=== PATIENT | male | born 1950 | race Caucasian/White ===

== ENCOUNTER 2020-06-12 21:19 | Emergency (ER) | payer MEDICARE, MEDICAID ==
[2020-06-12] MEDS ORDERED: Labetalol HCl 100 MG/20 ML VIAL ONE (21:49)
[2020-06-12 22:00] LABS: #Monocytes 0.6 10x3/uL (0.0-1.1); #Neutrophils 9.7 10x3/uL (1.5-8.4); %Basophils 0.1 % (0.0-2.0); %Eosinophils 0.2 % (0.0-6.0); %Lymphocytes 7.1 % (18.0-47.0); %Monocytes 5.7 % (0.0-10.0); %Neutrophils 85.9 % (40.0-75.0); Hemoglobin 9.5 g/dL (13.5-17.5); Mean Corpuscular HGB CONC 31.9 g/dL (32.0-36.0); Mean Corpuscular Hemoglobin 27.9 pg (27.0-33.0); Mean Corpuscular Volume 87.4 fl (81.2-95.1); Mean Platelet Volume 10.2 fl (7.4-10.4); Platelet Count 155 10x3/uL (150-450); RBC Distribution Width 15.9 % (11.5-14.5); Red Blood Cell (RBC) Count 3.41 10x6/uL (4.32-5.72); White Blood Cell (WBC) Count 11.3 10x3/uL (3.5-10.5)
[2020-06-12 22:10] LABS: ALT (SGPT) 8 U/L (8-55); AST (SGOT) 20 U/L (5-34); Albumin 3.6 g/dL (3.4-4.8); Alkaline Phosphatase 131 U/L (40-110); Anion Gap 16 mmol/L (10-20); BUN (Urea Nitrogen) 28 mg/dL (8.4-25.7); Bilirubin, Total 0.7 mg/dL (0.2-1.2); Calc. Creatinine Clearance 0 mL/min (70-130); Calcium 8.7 mg/dL (7.8-10.44); Carbon Dioxide 19 mmol/L (23-31); Chloride 107 mmol/L (98-107); Globulin 4.4 g/dL (2.4-3.5); Glucose 87 mg/dL (83-110); Lipase 27 U/L (8-78); Potassium 4.1 mmol/L (3.5-5.1); Sodium 138 mmol/L (136-145)
[2020-06-12 22:41] LABS: SARS-CoV-2 NAA Rapid Test Not Detected (NotDetected)
[2020-06-13 01:53] LABS: Bilirubin Neg (Negative); Blood, Urine 150 (Negative); Clarity Clear (Clear); Glucose, Urine (Dipstick) Normal (Negative); Ketone, Urine Negative (Negative); Leukocyte Negative (Negative); Nitrite Negative (Negative); Protein, Urine (Dipstick) 500 mg/dl (Neg-Trace); Urobilinogen Normal mg/dL (Less than 2); pH, Urine 6.5 (5.0-9.0)
[2020-06-13 02:00] LABS: Squamous Epithelial 0-3 HPF (0-3)
[2020-06-13 02:01] LABS: Bacteria/HPF Rare-Few HPF (None Seen); Mucous/LPF 1+ LPF (<2+)
== END 2020-06-13 03:04 ==
LOC: CSHERS 21:19
DX: R11.2 Nausea with vomiting, unspecified (principal); I11.0 Hypertensive heart disease with heart failure; I50.9 Heart failure, unspecified; E11.9 Type 2 diabetes mellitus without complications; M06.9 Rheumatoid arthritis, unspecified; J44.9 Chronic obstructive pulmonary disease, unspecified; F03.90 Unspecified dementia, unspecified severity, without behavioral disturbance, psychotic disturbance, mood disturbance, and anxiety; Z86.73 Personal history of transient ischemic attack (TIA), and cerebral infarction without residual deficits; Z87.891 Personal history of nicotine dependence; Z79.899 Other long term (current) drug therapy; Z20.822 Contact with and (suspected) exposure to COVID-19
CPT/HCPCS: 71045; 74176; 80053; 83605; 83690; 84484; 85025; 93005; 96374; 99285; U0002; 81003; 81015

== ENCOUNTER 2021-02-24 09:55 | Inpatient (IN) | payer MEDICARE, MEDICAID ==
[2021-02-24 11:54] LABS: Hemoglobin 7.8 g/dL (13.5-17.5); MDiff Complete? YES; Mean Corpuscular HGB CONC 28.9 g/dL (32.0-36.0); Mean Corpuscular Hemoglobin 26.4 pg (27.0-33.0); Mean Corpuscular Volume 91.2 fl (81.2-95.1); Mean Platelet Volume 11.6 fl (7.4-10.4); Platelet Count 83 10x3/uL (150-450); RBC Distribution Width 15.7 % (11.5-14.5); Red Blood Cell (RBC) Count 2.96 10x6/uL (4.32-5.72)
[2021-02-24 12:00] LABS: ALT (SGPT) 8 U/L (8-55); AST (SGOT) 27 U/L (5-34); Albumin 3.1 g/dL (3.4-4.8); Alkaline Phosphatase 100 U/L (40-110); Anion Gap 12 mmol/L (10-20); BUN (Urea Nitrogen) 38 mg/dL (8.4-25.7); Bilirubin, Total 0.9 mg/dL (0.2-1.2); Calc. Creatinine Clearance 0 mL/min (70-130); Calcium 7.8 mg/dL (7.8-10.44); Carbon Dioxide 22 mmol/L (23-31); Chloride 108 mmol/L (98-107); Globulin 3.9 g/dL (2.4-3.5); Glucose 60 mg/dL (83-110); Potassium 4.5 mmol/L (3.5-5.1); Sodium 137 mmol/L (136-145)
[2021-02-24 12:14] LABS: Band 1 % (5-11); Eosinophils 1 % (0-10); Lymphocytes 33 % (21-51); Monocytes 14 % (0-10); Neutrophil 50 % (42-75); Reactive Lymphocytes 1 % (0-10)
[2021-02-24 12:18] LABS: Anisocytosis SLIGHT = 6-15 cells (100X) (0-5/hpf); Hypochromia SLIGHT = 6-15 cells (100X) (0-5/hpf); Platelet Morphology Comment Appears Decreased; Polychromasia SLIGHT = 2-3 cells (100X) (0-2/hpf)
[2021-02-24 12:30] LABS: Lavender RECEIVED; Red RECEIVED
[2021-02-24] MEDS ORDERED: Furosemide 100 MG/10 ML VIAL ONE (13:49)
[2021-02-24] MEDS ORDERED: Dextrose 50% Abboject 50 ML SYRINGE SLOW IVP PRN (19:13)
[2021-02-24] MEDS ORDERED: HumaLOG 300 UNITS/3 ML VIAL SC PRN (19:13)
[2021-02-24] MEDS ORDERED: Pharmacy to Dose REMDESIVIR IVPB PRN (19:17)
[2021-02-24] MEDS ORDERED: GUAIFENESIN SF SOLN 200 MG/10 ML UDCUP PO PRN (19:18)
[2021-02-24] MEDS ORDERED: Electrolyte Replacement Protocol 1 EACH FS SCH (19:30)
[2021-02-24 19:47] LABS: CRP (Inflammatory) 3.01 mg/dL (= or < 0.5); Magnesium 1.9 mg/dL (1.6-2.6)
[2021-02-24] MEDS ORDERED: Ventolin HFA Inhaler 60 PUFF INHALER INH PRN (19:48)
[2021-02-24] MEDS ORDERED: Magnesium 2 GM/50 ML 2 GM in Premix Bag 1 BAG IVPB SCH ×2 (21:00→21:15)
[2021-02-25] MEDS: Docusate 100 MG CAP PO SCH ×3 (00:58→22:11)
[2021-02-25] MEDS: Ventolin HFA Inhaler 60 PUFF INHALER INH SCH ×4 (01:00→19:55)
[2021-02-25 06:04] LABS: Hemoglobin 8.2 g/dL (13.5-17.5); Mean Corpuscular HGB CONC 29.9 g/dL (32.0-36.0); Mean Corpuscular Hemoglobin 26.6 pg (27.0-33.0); Mean Platelet Volume 11.3 fl (7.4-10.4); Platelet Count 81 10x3/uL (150-450); RBC Distribution Width 15.9 % (11.5-14.5); Red Blood Cell (RBC) Count 3.08 10x6/uL (4.32-5.72); White Blood Cell (WBC) Count 2.7 10x3/uL (3.5-10.5)
[2021-02-25] MEDS: Furosemide 40 MG/4 ML VIAL SLOW IVP SCH ×2 (06:28→15:28)
[2021-02-25 06:58] LABS: MDiff Complete? YES
[2021-02-25 07:04] LABS: Band 4 % (5-11); Lymphocytes 18 % (21-51); Monocytes 19 % (0-10); Neutrophil 59 % (42-75)
[2021-02-25 07:06] LABS: Hypochromia MODERATE=16-30 cells (100X) (0-5/hpf); Platelet Morphology Comment Appears Decreased; Polychromasia SLIGHT = 2-3 cells (100X) (0-2/hpf)
[2021-02-25 07:12] LABS: SARS-CoV-2 NAA Rapid Test DETECTED (NotDetected)
[2021-02-25 07:24] LABS: Phosphorus 4.4 mg/dL (2.3-4.7)
[2021-02-25 07:27] LABS: Anion Gap 17 mmol/L (10-20); BUN (Urea Nitrogen) 42 mg/dL (8.4-25.7); Calc. Creatinine Clearance 254 mL/min (70-130); Calcium 7.8 mg/dL (7.8-10.44); Carbon Dioxide 22 mmol/L (23-31); Chloride 107 mmol/L (98-107); Glucose 65 mg/dL (83-110); Magnesium 2.3 mg/dL (1.6-2.6); Potassium 4.5 mmol/L (3.5-5.1); Sodium 141 mmol/L (136-145)
[2021-02-25] MEDS ORDERED: Dexamethasone 4 mg/ml Vial SLOW IVP SCH (09:00)
[2021-02-25] MEDS: Zinc Sulfate 220 MG CAP PO SCH (09:45)
[2021-02-25] MEDS: Cholecalciferol 1,000 UNITS (25 MCG) TAB PO SCH (09:46)
[2021-02-25] MEDS: Carvedilol 25 MG TAB PO SCH ×2 (09:46→17:30)
[2021-02-25] MEDS: Ascorbic Acid 500 mg Chewable Tablet PO SCH (09:46)
[2021-02-25] MEDS: Ferrous Sulfate 325 MG TAB PO SCH (09:46)
[2021-02-25] MEDS: Tiotropium Bromide 4 GM INHALER IH SCH (15:00)
[2021-02-25] MEDS: Dexamethasone 4 mg/ml Vial SLOW IVP SCH (22:16)
[2021-02-26] MEDS: Ventolin HFA Inhaler 60 PUFF INHALER INH SCH ×4 (00:45→20:10)
[2021-02-26 04:57] LABS: #Neutrophils 0.5 10x3/uL (1.5-8.4); %Lymphocytes 26.7 % (18.0-47.0); %Monocytes 4.7 % (0.0-10.0); %Neutrophils 59.3 % (40.0-75.0); Hemoglobin 8.8 g/dL (13.5-17.5); Mean Corpuscular HGB CONC 29.7 g/dL (32.0-36.0); Mean Corpuscular Hemoglobin 26.1 pg (27.0-33.0); Mean Corpuscular Volume 87.8 fl (81.2-95.1); Mean Platelet Volume 11.5 fl (7.4-10.4); Platelet Count 90 10x3/uL (150-450); RBC Distribution Width 15.6 % (11.5-14.5); Red Blood Cell (RBC) Count 3.37 10x6/uL (4.32-5.72); White Blood Cell (WBC) Count 0.9 10x3/uL (3.5-10.5)
[2021-02-26 05:17] LABS: Anion Gap 17 mmol/L (10-20); BUN (Urea Nitrogen) 44 mg/dL (8.4-25.7); Calc. Creatinine Clearance 25 mL/min (70-130); Calcium 7.9 mg/dL (7.8-10.44); Carbon Dioxide 24 mmol/L (23-31); Chloride 100 mmol/L (98-107); Glucose 188 mg/dL (83-110); Potassium 4.7 mmol/L (3.5-5.1); Sodium 136 mmol/L (136-145)
[2021-02-26] MEDS: Furosemide 40 MG/4 ML VIAL SLOW IVP SCH (06:19)
[2021-02-26] MEDS: Tiotropium Bromide 4 GM INHALER IH SCH (07:56)
[2021-02-26] MEDS ORDERED: FLU VACC QS2021-22(65YR UP)/PF 240 MCG/0.7 ML SYRINGE IM ONE (09:00)
[2021-02-26] MEDS: Ferrous Sulfate 325 MG TAB PO SCH (09:48)
[2021-02-26] MEDS: Dexamethasone 4 mg/ml Vial SLOW IVP SCH ×2 (09:48→20:04)
[2021-02-26] MEDS: Cholecalciferol 1,000 UNITS (25 MCG) TAB PO SCH (09:48)
[2021-02-26] MEDS: Docusate 100 MG CAP PO SCH ×2 (09:48→20:04)
[2021-02-26] MEDS: Ascorbic Acid 500 mg Chewable Tablet PO SCH (09:48)
[2021-02-26] MEDS: Zinc Sulfate 220 MG CAP PO SCH (09:48)
[2021-02-26] MEDS: Carvedilol 25 MG TAB PO SCH ×2 (09:48→17:45)
[2021-02-26] MEDS: HumaLOG 300 UNITS/3 ML VIAL SC PRN (11:53)
[2021-02-27] MEDS: Ventolin HFA Inhaler 60 PUFF INHALER INH SCH ×4 (01:21→21:05)
[2021-02-27 05:07] LABS: Hemoglobin 9.7 g/dL (13.5-17.5); Mean Corpuscular HGB CONC 31.3 g/dL (32.0-36.0); Mean Corpuscular Hemoglobin 26.7 pg (27.0-33.0); Mean Corpuscular Volume 85.4 fl (81.2-95.1); Mean Platelet Volume 11.6 fl (7.4-10.4); Platelet Count 104 10x3/uL (150-450); RBC Distribution Width 15.5 % (11.5-14.5); Red Blood Cell (RBC) Count 3.63 10x6/uL (4.32-5.72); White Blood Cell (WBC) Count 2.2 10x3/uL (3.5-10.5)
[2021-02-27 05:27] LABS: Anion Gap 15 mmol/L (10-20); BUN (Urea Nitrogen) 52 mg/dL (8.4-25.7); Calc. Creatinine Clearance 26 mL/min (70-130); Calcium 8.2 mg/dL (7.8-10.44); Carbon Dioxide 26 mmol/L (23-31); Chloride 101 mmol/L (98-107); Glucose 199 mg/dL (83-110); Potassium 4.1 mmol/L (3.5-5.1); Sodium 138 mmol/L (136-145)
[2021-02-27] MEDS: Furosemide 40 MG/4 ML VIAL SLOW IVP SCH (06:04)
[2021-02-27] MEDS: Tiotropium Bromide 4 GM INHALER IH SCH (07:45)
[2021-02-27 07:51] LABS: MDiff Complete? YES
[2021-02-27 08:32] LABS: Band 5 % (5-11); Lymphocytes 16 % (21-51); Metamyelocyte 2 % (0-0); Monocytes 5 % (0-10)
[2021-02-27 08:33] LABS: Anisocytosis SLIGHT = 6-15 cells (100X) (0-5/hpf); Hypochromia SLIGHT = 6-15 cells (100X) (0-5/hpf); Platelet Morphology Comment Appears Decreased
[2021-02-27] MEDS: Dexamethasone 4 mg/ml Vial SLOW IVP SCH ×2 (08:51→21:08)
[2021-02-27] MEDS: Zinc Sulfate 220 MG CAP PO SCH (08:51)
[2021-02-27] MEDS: Cholecalciferol 1,000 UNITS (25 MCG) TAB PO SCH (08:52)
[2021-02-27] MEDS: Ascorbic Acid 500 mg Chewable Tablet PO SCH (08:52)
[2021-02-27] MEDS: Ferrous Sulfate 325 MG TAB PO SCH (08:52)
[2021-02-27] MEDS: Docusate 100 MG CAP PO SCH ×3 (08:53→21:49)
[2021-02-27] MEDS: Clopidogrel Bisulfate 75 MG TAB PO SCH (09:03)
[2021-02-27] MEDS: Carvedilol 25 MG TAB PO SCH ×2 (09:03→17:58)
[2021-02-27] MEDS ORDERED: Bisacodyl 5 MG TAB PO PRN (09:50)
[2021-02-27] MEDS: HumaLOG 300 UNITS/3 ML VIAL SC PRN (18:00)
[2021-02-28] MEDS: Ventolin HFA Inhaler 60 PUFF INHALER INH SCH ×4 (00:15→19:45)
[2021-02-28 05:51] LABS: Band 22 % (5-11); Lymphocytes 4 % (21-51); MDiff Complete? YES; Metamyelocyte 1 % (0-0); Monocytes 6 % (0-10); Myelocyte 1 % (0-0); Neutrophil 66 % (42-75); Nucleated RBC 1 % (0); Platelet Morphology Comment Appears Decreased; RBC Morphology Normal
[2021-02-28 05:52] LABS: Hemoglobin 9.5 g/dL (13.5-17.5); Mean Corpuscular HGB CONC 30.9 g/dL (32.0-36.0); Mean Corpuscular Hemoglobin 26.5 pg (27.0-33.0); Mean Corpuscular Volume 85.8 fl (81.2-95.1); Mean Platelet Volume 12.3 fl (7.4-10.4); Platelet Count 113 10x3/uL (150-450); RBC Distribution Width 15.5 % (11.5-14.5); Red Blood Cell (RBC) Count 3.58 10x6/uL (4.32-5.72); White Blood Cell (WBC) Count 4.5 10x3/uL (3.5-10.5)
[2021-02-28] MEDS: Furosemide 40 MG/4 ML VIAL SLOW IVP SCH (06:00)
[2021-02-28] MEDS ORDERED: Calcium Carbonate 500 MG ChewTAB PO PRN (06:39)
[2021-02-28] MEDS: Tiotropium Bromide 4 GM INHALER IH SCH (07:43)
[2021-02-28] MEDS: Dexamethasone 4 mg/ml Vial SLOW IVP SCH ×2 (08:13→23:30)
[2021-02-28] MEDS: Carvedilol 25 MG TAB PO SCH ×2 (08:14→16:39)
[2021-02-28] MEDS: Ferrous Sulfate 325 MG TAB PO SCH (08:14)
[2021-02-28] MEDS: Docusate 100 MG CAP PO SCH ×3 (08:14→23:30)
[2021-02-28] MEDS: Amlodipine 10 MG TAB PO SCH (08:14)
[2021-02-28] MEDS: Cholecalciferol 1,000 UNITS (25 MCG) TAB PO SCH (08:14)
[2021-02-28] MEDS: Ascorbic Acid 500 mg Chewable Tablet PO SCH (08:14)
[2021-02-28] MEDS: Zinc Sulfate 220 MG CAP PO SCH (08:14)
[2021-02-28] MEDS: Clopidogrel Bisulfate 75 MG TAB PO SCH (08:14)
[2021-02-28] MEDS ORDERED: [UNRECOGNIZED DRUG - OTHER] INH SCH (09:00)
[2021-02-28] MEDS: HumaLOG 300 UNITS/3 ML VIAL SC PRN ×2 (12:57→17:29)
[2021-03-01] MEDS: Ventolin HFA Inhaler 60 PUFF INHALER INH SCH ×4 (00:30→19:40)
[2021-03-01 05:31] LABS: Anion Gap 14 mmol/L (10-20); BUN (Urea Nitrogen) 63 mg/dL (8.4-25.7); CRP (Inflammatory) 0.86 mg/dL (= or < 0.5); Calc. Creatinine Clearance 26 mL/min (70-130); Calcium 8.3 mg/dL (7.8-10.44); Carbon Dioxide 27 mmol/L (23-31); Chloride 101 mmol/L (98-107); Glucose 112 mg/dL (83-110); Potassium 4.3 mmol/L (3.5-5.1); Sodium 138 mmol/L (136-145)
[2021-03-01] MEDS: Furosemide 40 MG/4 ML VIAL SLOW IVP SCH (05:36)
[2021-03-01] MEDS: Dexamethasone 4 mg/ml Vial SLOW IVP SCH (07:53)
[2021-03-01] MEDS: Docusate 100 MG CAP PO SCH ×2 (07:54→21:30)
[2021-03-01] MEDS: Amlodipine 10 MG TAB PO SCH (07:54)
[2021-03-01] MEDS: Ferrous Sulfate 325 MG TAB PO SCH (07:54)
[2021-03-01] MEDS: Cholecalciferol 1,000 UNITS (25 MCG) TAB PO SCH (07:54)
[2021-03-01] MEDS: Ascorbic Acid 500 mg Chewable Tablet PO SCH (07:54)
[2021-03-01] MEDS: Zinc Sulfate 220 MG CAP PO SCH (07:54)
[2021-03-01] MEDS: Carvedilol 25 MG TAB PO SCH ×2 (07:54→16:03)
[2021-03-01] MEDS: Clopidogrel Bisulfate 75 MG TAB PO SCH (07:54)
[2021-03-01] MEDS: Tiotropium Bromide 4 GM INHALER IH SCH (10:05)
[2021-03-01] MEDS: HumaLOG 300 UNITS/3 ML VIAL SC PRN ×2 (12:21→17:21)
[2021-03-01] MEDS: Mag-Al 1200 mg/1200 mg/30 ML UDCUP PO SCH ×2 (16:55→21:29)
[2021-03-02] MEDS: Ventolin HFA Inhaler 60 PUFF INHALER INH SCH ×4 (01:00→19:45)
[2021-03-02] MEDS: Mag-Al 1200 mg/1200 mg/30 ML UDCUP PO SCH ×4 (08:00→22:19)
[2021-03-02] MEDS: Tiotropium Bromide 4 GM INHALER IH SCH (08:06)
[2021-03-02] MEDS ORDERED: Milk Of Magnesia 30 ML UDCUP PO PRN (08:13)
[2021-03-02] MEDS ORDERED: Magnesium Citrate 300 ML BOT PO SCH (09:00)
[2021-03-02] MEDS: Docusate 100 MG CAP PO SCH ×2 (09:43→21:01)
[2021-03-02] MEDS: Ascorbic Acid 500 mg Chewable Tablet PO SCH (09:44)
[2021-03-02] MEDS: Furosemide 20 MG TAB PO SCH (09:44)
[2021-03-02] MEDS: Zinc Sulfate 220 MG CAP PO SCH (09:44)
[2021-03-02] MEDS: Ferrous Sulfate 325 MG TAB PO SCH (09:44)
[2021-03-02] MEDS: Amlodipine 10 MG TAB PO SCH (09:44)
[2021-03-02] MEDS: Clopidogrel Bisulfate 75 MG TAB PO SCH (09:44)
[2021-03-02] MEDS: Carvedilol 25 MG TAB PO SCH ×2 (09:44→19:32)
[2021-03-02] MEDS: Cholecalciferol 1,000 UNITS (25 MCG) TAB PO SCH (09:45)
[2021-03-02] MEDS: Dexamethasone 4 MG TAB PO SCH (09:45)
[2021-03-02 09:46] LABS: Lactic Acid 1.4 mmol/L (0.5-2.2)
[2021-03-02] MEDS ORDERED: Bisacodyl 10 MG SUPP PR PRN (10:13)
[2021-03-02] MEDS: Metoclopramide HCl 10 MG/2 ML VIAL IVP PRN (11:19)
[2021-03-03] MEDS: Ventolin HFA Inhaler 60 PUFF INHALER INH SCH ×4 (00:58→19:52)
[2021-03-03 05:35] LABS: #Monocytes 1.5 10x3/uL (0.0-1.1); %Basophils 0.2 % (0.0-2.0); %Lymphocytes 1.1 % (18.0-47.0); %Monocytes 7.6 % (0.0-10.0); %Neutrophils 89.4 % (40.0-75.0); Hemoglobin 9.7 g/dL (13.5-17.5); Mean Corpuscular HGB CONC 29.9 g/dL (32.0-36.0); Mean Corpuscular Volume 86.9 fl (81.2-95.1); Mean Platelet Volume 12.1 fl (7.4-10.4); Platelet Count 130 10x3/uL (150-450); RBC Distribution Width 15.5 % (11.5-14.5); Red Blood Cell (RBC) Count 3.73 10x6/uL (4.32-5.72)
[2021-03-03 05:41] LABS: Anion Gap 17 mmol/L (10-20); BUN (Urea Nitrogen) 82 mg/dL (8.4-25.7); Calc. Creatinine Clearance 20 mL/min (70-130); Calcium 8.5 mg/dL (7.8-10.44); Carbon Dioxide 27 mmol/L (23-31); Chloride 98 mmol/L (98-107); Glucose 120 mg/dL (83-110); Potassium 4.8 mmol/L (3.5-5.1); Sodium 137 mmol/L (136-145)
[2021-03-03 07:25] LABS: Dohle Bodies SLIGHT
[2021-03-03] MEDS: Tiotropium Bromide 4 GM INHALER IH SCH (07:27)
[2021-03-03 07:31] LABS: Basophilic Stippling SLIGHT = 1-2 cells (100X) (None Seen); Hypochromia SLIGHT = 6-15 cells (100X) (0-5/hpf); Platelet Morphology Comment Appears Decreased; Polychromasia SLIGHT = 2-3 cells (100X) (0-2/hpf)
[2021-03-03] MEDS: Ferrous Sulfate 325 MG TAB PO SCH (08:50)
[2021-03-03] MEDS: Zinc Sulfate 220 MG CAP PO SCH (08:50)
[2021-03-03] MEDS: Amlodipine 10 MG TAB PO SCH (08:50)
[2021-03-03] MEDS: Mag-Al 1200 mg/1200 mg/30 ML UDCUP PO SCH ×4 (08:50→23:39)
[2021-03-03] MEDS: Cholecalciferol 1,000 UNITS (25 MCG) TAB PO SCH (08:50)
[2021-03-03] MEDS: Ascorbic Acid 500 mg Chewable Tablet PO SCH (08:50)
[2021-03-03] MEDS: Dexamethasone 4 MG TAB PO SCH (08:50)
[2021-03-03] MEDS: Carvedilol 25 MG TAB PO SCH ×2 (08:50→17:29)
[2021-03-03] MEDS: Furosemide 20 MG TAB PO SCH (08:50)
[2021-03-03] MEDS: Docusate 100 MG CAP PO SCH ×2 (08:50→20:20)
[2021-03-03] MEDS: Clopidogrel Bisulfate 75 MG TAB PO SCH (08:52)
[2021-03-03] MEDS ORDERED: Enoxaparin Sodium 40 MG/0.4 ML SYRINGE SC SCH (09:45)
[2021-03-03] MEDS: Acetaminophen 325 MG TAB PO PRN (11:13)
[2021-03-03] MEDS ORDERED: Enoxaparin Sodium 40 MG/0.4 ML SYRINGE ONE (11:14)
[2021-03-03] MEDS: HumaLOG 300 UNITS/3 ML VIAL SC PRN (17:29)
[2021-03-03] MEDS: Enoxaparin Sodium 40 MG/0.4 ML SYRINGE SC SCH (20:19)
[2021-03-04] MEDS: Ventolin HFA Inhaler 60 PUFF INHALER INH SCH ×4 (01:18→17:23)
[2021-03-04 05:12] LABS: #Monocytes 1.4 10x3/uL (0.0-1.1); #Neutrophils 17.4 10x3/uL (1.5-8.4); %Basophils 0.2 % (0.0-2.0); %Monocytes 7.2 % (0.0-10.0); %Neutrophils 88.5 % (40.0-75.0); Hemoglobin 9.8 g/dL (13.5-17.5); Mean Corpuscular HGB CONC 29.3 g/dL (32.0-36.0); Mean Corpuscular Hemoglobin 25.8 pg (27.0-33.0); Mean Corpuscular Volume 87.9 fl (81.2-95.1); Mean Platelet Volume 11.9 fl (7.4-10.4); Platelet Count 168 10x3/uL (150-450); RBC Distribution Width 15.7 % (11.5-14.5); White Blood Cell (WBC) Count 19.6 10x3/uL (3.5-10.5)
[2021-03-04 05:33] LABS: Anion Gap 20 mmol/L (10-20); BUN (Urea Nitrogen) 99 mg/dL (8.4-25.7); CRP (Inflammatory) 23.45 mg/dL (= or < 0.5); Calc. Creatinine Clearance 18 mL/min (70-130); Calcium 8.8 mg/dL (7.8-10.44); Carbon Dioxide 24 mmol/L (23-31); Chloride 98 mmol/L (98-107); Glucose 125 mg/dL (83-110); Potassium 4.9 mmol/L (3.5-5.1); Sodium 137 mmol/L (136-145)
[2021-03-04 05:57] LABS: Platelet Morphology Comment Appears Adequate
[2021-03-04 06:02] LABS: Polychromasia SLIGHT = 2-3 cells (100X) (0-2/hpf)
[2021-03-04 06:03] LABS: Anisocytosis SLIGHT = 6-15 cells (100X) (0-5/hpf); Basophilic Stippling SLIGHT = 1-2 cells (100X) (None Seen); Stomatocytes SLIGHT = 2-5 cells (100X) (0-1/hpf)
[2021-03-04 07:54] LABS: ALV-art Gradient 603.025 mmHg (0-20); Actual Bicarbonate (HCO3a) 28.5 mEq/L (22-28); Base Excess (BEa) 3.7 mEq/L (-2.0 to +3.0); CO2 Tension 44.3 mmHg (35.0-45.0); Calcium, Ionized (arterial) 1.12 mmol/L (1.12-1.30); Carboxyhemoglobin (COHb) 0.3 gm% (0.0-3.0); Hemoglobin (Hb) 11.2 g/dL (14.0-18.0); O2 Tension (PaO2), arterial 54.6 mmHg (> 70.0); Puncture Site RBA; pH, Arterial 7.43 (7.35-7.45)
[2021-03-04] MEDS ORDERED: Morphine 4 MG/ML VIAL SLOW IVP SCH (08:00)
[2021-03-04] MEDS: Tiotropium Bromide 4 GM INHALER IH SCH (08:29)
[2021-03-04] MEDS: Cholecalciferol 1,000 UNITS (25 MCG) TAB PO SCH (08:56)
[2021-03-04] MEDS: Ascorbic Acid 500 mg Chewable Tablet PO SCH (08:56)
[2021-03-04] MEDS: Clopidogrel Bisulfate 75 MG TAB PO SCH (08:56)
[2021-03-04] MEDS: Docusate 100 MG CAP PO SCH ×2 (08:56→22:22)
[2021-03-04] MEDS: Furosemide 20 MG TAB PO SCH (08:57)
[2021-03-04] MEDS: Zinc Sulfate 220 MG CAP PO SCH (08:57)
[2021-03-04] MEDS: Ferrous Sulfate 325 MG TAB PO SCH (08:57)
[2021-03-04] MEDS: Enoxaparin Sodium 40 MG/0.4 ML SYRINGE SC SCH (08:57)
[2021-03-04] MEDS: Amlodipine 10 MG TAB PO SCH (09:01)
[2021-03-04] MEDS: Carvedilol 25 MG TAB PO SCH ×2 (09:01→17:02)
[2021-03-04] MEDS: Dexamethasone 4 MG TAB PO SCH ×2 (09:55→10:13)
[2021-03-04] MEDS: Mag-Al 1200 mg/1200 mg/30 ML UDCUP PO SCH ×4 (09:56→22:22)
[2021-03-04] MEDS: Metoclopramide HCl 10 MG/2 ML VIAL IVP PRN (10:28)
[2021-03-04] MEDS ORDERED: Vancomycin HCl 500 MG in Sodium Chloride 0.9% 100 ML IVPB SCH (11:00)
[2021-03-04] MEDS ORDERED: Vancomycin 1 GM in Premix Bag 1 BAG IVPB SCH (13:00)
[2021-03-04] MEDS: HumaLOG 300 UNITS/3 ML VIAL SC PRN (16:41)
[2021-03-04 18:49] LABS: Albumin 3.1 g/dL (3.4-4.8); Anion Gap 18 mmol/L (10-20); BUN (Urea Nitrogen) 107 mg/dL (8.4-25.7); BUN/Creatinine Ratio 30.06; Calc. Creatinine Clearance 16 mL/min (70-130); Calcium 8.7 mg/dL (7.8-10.44); Carbon Dioxide 25 mmol/L (23-31); Chloride 99 mmol/L (98-107); Glucose 109 mg/dL (83-110); Phosphorus 3.8 mg/dL (2.3-4.7); Potassium 5.1 mmol/L (3.5-5.1); Sodium 137 mmol/L (136-145)
[2021-03-04 20:46] LABS: Bilirubin Neg (Negative); Blood, Urine 25 (Negative); Clarity Slightly Cloudy (Clear); Glucose, Urine (Dipstick) Normal (Negative); Ketone, Urine Negative (Negative); Leukocyte 100 (Negative); Nitrite Negative (Negative); Protein, Urine (Dipstick) 100 mg/dl (Neg-Trace); Specific Gravity, Urine 1.015 (1.002-1.036)
[2021-03-04 20:49] LABS: Urine Culture Reflex No No
[2021-03-04 20:57] LABS: Bacteria/HPF 2+ HPF (None Seen); Squamous Epithelial 0-3 HPF (0-3); Transitional Epithelial 0-3 HPF (None Seen)
[2021-03-04 21:03] LABS: Creatinine, Urine 99.11 mg/dL (63-166)
[2021-03-04 21:14] LABS: Protein, Urine Random Quant 189 mg/dL (1-14)
[2021-03-04] MEDS ORDERED: Sodium Chloride 0.9% 500 ML IV SCH (21:30)
[2021-03-04] MEDS: methylPREDNISolone Sod Succ 40 MG VIAL IVP SCH (22:22)
[2021-03-05] MEDS ORDERED: Sodium Chloride 0.9% 500 ML IV SCH (02:15)
[2021-03-05] MEDS: Sodium Chloride 0.9% 1,000 ML IV SCH ×2 (02:29→11:47)
[2021-03-05] MEDS ORDERED: Sodium Chloride 0.9% 1,000 ML IV SCH (03:00)
[2021-03-05 03:48] LABS: #Monocytes 0.4 10x3/uL (0.0-1.1); %Basophils 0.1 % (0.0-2.0); %Lymphocytes 0.7 % (18.0-47.0); %Neutrophils 94.2 % (40.0-75.0); Hemoglobin 8.5 g/dL (13.5-17.5); Mean Corpuscular HGB CONC 29.1 g/dL (32.0-36.0); Mean Corpuscular Hemoglobin 25.7 pg (27.0-33.0); Mean Corpuscular Volume 88.2 fl (81.2-95.1); Mean Platelet Volume 11.3 fl (7.4-10.4); Platelet Count 213 10x3/uL (150-450); RBC Distribution Width 15.7 % (11.5-14.5); Red Blood Cell (RBC) Count 3.31 10x6/uL (4.32-5.72); White Blood Cell (WBC) Count 13.8 10x3/uL (3.5-10.5)
[2021-03-05 04:05] LABS: ALT (SGPT) 8 U/L (8-55); AST (SGOT) 13 U/L (5-34); Albumin 2.9 g/dL (3.4-4.8); Alkaline Phosphatase 76 U/L (40-110); Anion Gap 20 mmol/L (10-20); BUN (Urea Nitrogen) 104 mg/dL (8.4-25.7); Bilirubin, Total 1.1 mg/dL (0.2-1.2); Calc. Creatinine Clearance 16 mL/min (70-130); Calcium 8.4 mg/dL (7.8-10.44); Carbon Dioxide 22 mmol/L (23-31); Chloride 100 mmol/L (98-107); Globulin 3.9 g/dL (2.4-3.5); Glucose 134 mg/dL (83-110); Magnesium 2.3 mg/dL (1.6-2.6); Potassium 5.4 mmol/L (3.5-5.1); Protein, Total 6.8 g/dL (5.8-8.1); Sodium 137 mmol/L (136-145)
[2021-03-05] MEDS: Ventolin HFA Inhaler 60 PUFF INHALER INH SCH ×4 (04:10→20:33)
[2021-03-05 04:59] LABS: Platelet Morphology Comment Appears Adequate
[2021-03-05 05:00] LABS: Anisocytosis SLIGHT = 6-15 cells (100X) (0-5/hpf); Hypochromia SLIGHT = 6-15 cells (100X) (0-5/hpf); Macrocytosis SLIGHT = 6-15 cells (100X) (0-5/hpf); Microcytosis SLIGHT = 6-15 cells (100X) (0-5/hpf); Polychromasia SLIGHT = 2-3 cells (100X) (0-2/hpf)
[2021-03-05] MEDS: Tiotropium Bromide 4 GM INHALER IH SCH (08:23)
[2021-03-05] MEDS: Mag-Al 1200 mg/1200 mg/30 ML UDCUP PO SCH ×4 (08:26→21:39)
[2021-03-05] MEDS: Carvedilol 25 MG TAB PO SCH ×2 (08:27→17:01)
[2021-03-05] MEDS: Ascorbic Acid 500 mg Chewable Tablet PO SCH (08:28)
[2021-03-05] MEDS: Amlodipine 10 MG TAB PO SCH (08:28)
[2021-03-05] MEDS: Clopidogrel Bisulfate 75 MG TAB PO SCH (08:29)
[2021-03-05] MEDS: Cholecalciferol 1,000 UNITS (25 MCG) TAB PO SCH (08:29)
[2021-03-05] MEDS: Enoxaparin Sodium 40 MG/0.4 ML SYRINGE SC SCH (08:30)
[2021-03-05] MEDS: Docusate 100 MG CAP PO SCH ×2 (08:30→21:39)
[2021-03-05] MEDS: Ferrous Sulfate 325 MG TAB PO SCH (08:31)
[2021-03-05] MEDS: methylPREDNISolone Sod Succ 40 MG VIAL IVP SCH ×2 (08:31→21:39)
[2021-03-05] MEDS: Zinc Sulfate 220 MG CAP PO SCH (08:32)
[2021-03-05 10:18] LABS: Vancomycin, Random 5.5 ug/mL (See Comment)
[2021-03-05] MEDS ORDERED: Vancomycin HCl 1 GM in Sodium Chloride 0.9% 250 ML 250 ML IVPB SCH (11:00)
[2021-03-05] MEDS: HumaLOG 300 UNITS/3 ML VIAL SC PRN ×2 (11:50→21:40)
[2021-03-05 12:31] LABS: Albumin 3.1 g/dL (3.4-4.8); Anion Gap 21 mmol/L (10-20); BUN (Urea Nitrogen) 108 mg/dL (8.4-25.7); BUN/Creatinine Ratio 28.57; Calc. Creatinine Clearance 15 mL/min (70-130); Calcium 8.8 mg/dL (7.8-10.44); Carbon Dioxide 21 mmol/L (23-31); Chloride 103 mmol/L (98-107); Glucose 178 mg/dL (83-110); Phosphorus 3.9 mg/dL (2.3-4.7); Sodium 140 mmol/L (136-145)
[2021-03-05 13:33] LABS: Sodium, Urine Less than 20 mmol/L (Not Available); Urea Nitrogen, Random Urine 529 mg/dl
[2021-03-05] MEDS ORDERED: Sodium Bicarbonate 75 MEQ, Admixture Fee 1 EACH in Sodium Chloride 0.45% 1,000 ML IV SCH (16:00)
[2021-03-05] MEDS ORDERED: Sodium Bicarbonate 75 MEQ in Sodium Chloride 0.45% 1,000 ML IV SCH (16:00)
[2021-03-05 16:44] LABS: Anion Gap 19 mmol/L (10-20); BUN (Urea Nitrogen) 109 mg/dL (8.4-25.7); Calc. Creatinine Clearance 16 mL/min (70-130); Calcium 8.4 mg/dL (7.8-10.44); Carbon Dioxide 24 mmol/L (23-31); Chloride 101 mmol/L (98-107); Glucose 107 mg/dL (83-110); Potassium 4.2 mmol/L (3.5-5.1); Sodium 140 mmol/L (136-145)
[2021-03-05] MEDS: guaiFENesin 100 MG/5 ML UDCUP PO PRN ×2 (18:01→22:22)
[2021-03-06] MEDS: Ventolin HFA Inhaler 60 PUFF INHALER INH SCH ×4 (02:37→19:23)
[2021-03-06 03:51] LABS: Hemoglobin 7.3 g/dL (13.5-17.5); Mean Corpuscular HGB CONC 30.9 g/dL (32.0-36.0); Mean Corpuscular Hemoglobin 31.1 pg (27.0-33.0); Mean Corpuscular Volume 100.4 fl (81.2-95.1); Mean Platelet Volume 11.6 fl (7.4-10.4); Platelet Count 145 10x3/uL (150-450); RBC Distribution Width 19.2 % (11.5-14.5); Red Blood Cell (RBC) Count 2.35 10x6/uL (4.32-5.72); White Blood Cell (WBC) Count 7.4 10x3/uL (3.5-10.5)
[2021-03-06 04:22] LABS: ALT (SGPT) 444 U/L (8-55); AST (SGOT) 356 U/L (5-34); Albumin 2.6 g/dL (3.4-4.8); Alkaline Phosphatase 75 U/L (40-110); Anion Gap 12 mmol/L (10-20); BUN (Urea Nitrogen) 60 mg/dL (8.4-25.7); Bilirubin, Total 0.7 mg/dL (0.2-1.2); Calc. Creatinine Clearance 65 mL/min (70-130); Calcium 7.6 mg/dL (7.8-10.44); Carbon Dioxide 28 mmol/L (23-31); Chloride 117 mmol/L (98-107); Globulin 2.6 g/dL (2.4-3.5); Glucose 186 mg/dL (83-110); Potassium 3.8 mmol/L (3.5-5.1); Protein, Total 5.2 g/dL (5.8-8.1); Sodium 153 mmol/L (136-145)
[2021-03-06 04:37] LABS: MDiff Complete? YES; Manual Diff?? YES
[2021-03-06 05:35] LABS: Band 16 % (5-11); Lymphocytes 3 % (21-51); Metamyelocyte 1 % (0-0); Monocytes 1 % (0-10); Neutrophil 79 % (42-75); Nucleated RBC 3 % (0)
[2021-03-06 05:36] LABS: Platelet Morphology Comment Appears Adequate
[2021-03-06 05:37] LABS: Anisocytosis SLIGHT = 6-15 cells (100X) (0-5/hpf); Elliptocytes SLIGHT = 2-5 cells (100X) (0-1/hpf); Macrocytosis SLIGHT = 6-15 cells (100X) (0-5/hpf); Microcytosis SLIGHT = 6-15 cells (100X) (0-5/hpf)
[2021-03-06] MEDS: Dextrose 5% in Water 1,000 ML IV PRN ×2 (06:14→06:15)
[2021-03-06] MEDS: Dextrose 5% in Water 500 ML IV SCH ×2 (06:15→14:48)
[2021-03-06] MEDS: Carvedilol 25 MG TAB PO SCH ×2 (08:09→16:28)
[2021-03-06] MEDS: Ascorbic Acid 500 mg Chewable Tablet PO SCH (08:09)
[2021-03-06] MEDS: Cholecalciferol 1,000 UNITS (25 MCG) TAB PO SCH (08:10)
[2021-03-06] MEDS: Mag-Al 1200 mg/1200 mg/30 ML UDCUP PO SCH ×4 (08:10→20:12)
[2021-03-06] MEDS: Amlodipine 10 MG TAB PO SCH (08:10)
[2021-03-06] MEDS: Zinc Sulfate 220 MG CAP PO SCH (08:10)
[2021-03-06] MEDS: Docusate 100 MG CAP PO SCH ×2 (08:11→20:12)
[2021-03-06] MEDS: Clopidogrel Bisulfate 75 MG TAB PO SCH (08:11)
[2021-03-06] MEDS: Enoxaparin Sodium 40 MG/0.4 ML SYRINGE SC SCH (08:11)
[2021-03-06] MEDS: Ferrous Sulfate 325 MG TAB PO SCH (08:12)
[2021-03-06] MEDS: HumaLOG 300 UNITS/3 ML VIAL SC PRN ×3 (08:20→20:13)
[2021-03-06] MEDS: Tiotropium Bromide 4 GM INHALER IH SCH (08:44)
[2021-03-06] MEDS: methylPREDNISolone Sod Succ 40 MG VIAL IVP SCH ×2 (09:01→20:12)
[2021-03-06 09:33] LABS: Hemoglobin 9.2 g/dL (13.5-17.5); Mean Corpuscular HGB CONC 29.3 g/dL (32.0-36.0); Mean Corpuscular Hemoglobin 26.1 pg (27.0-33.0); Mean Platelet Volume 11.6 fl (7.4-10.4); Platelet Count 276 10x3/uL (150-450); RBC Distribution Width 15.7 % (11.5-14.5); Red Blood Cell (RBC) Count 3.53 10x6/uL (4.32-5.72); White Blood Cell (WBC) Count 13.8 10x3/uL (3.5-10.5)
[2021-03-06 09:51] LABS: ALT (SGPT) 9 U/L (8-55); AST (SGOT) 18 U/L (5-34); Albumin 2.9 g/dL (3.4-4.8); Alkaline Phosphatase 73 U/L (40-110); Anion Gap 18 mmol/L (10-20); BUN (Urea Nitrogen) 107 mg/dL (8.4-25.7); Bilirubin, Total 0.7 mg/dL (0.2-1.2); Calc. Creatinine Clearance 17 mL/min (70-130); Calcium 8.2 mg/dL (7.8-10.44); Carbon Dioxide 25 mmol/L (23-31); Chloride 100 mmol/L (98-107); Glucose 197 mg/dL (83-110); Potassium 4.1 mmol/L (3.5-5.1); Protein, Total 6.9 g/dL (5.8-8.1); Sodium 139 mmol/L (136-145)
[2021-03-06 09:54] LABS: Vancomycin, Random 17.3 ug/mL (See Comment)
[2021-03-06] MEDS ORDERED: Vancomycin HCl 250 MG, Admixture Fee 1 EACH in Sodium Chloride 0.9% 100 ML IVPB SCH (11:30)
[2021-03-06] MEDS: Sodium Chloride 0.9% 1,000 ML IV SCH (20:12)
[2021-03-07] MEDS: Ventolin HFA Inhaler 60 PUFF INHALER INH SCH ×4 (01:57→19:45)
[2021-03-07 05:05] LABS: ALT (SGPT) 8 U/L (8-55); AST (SGOT) 18 U/L (5-34); Albumin 2.8 g/dL (3.4-4.8); Alkaline Phosphatase 68 U/L (40-110); Anion Gap 17 mmol/L (10-20); BUN (Urea Nitrogen) 107 mg/dL (8.4-25.7); Bilirubin, Total 0.6 mg/dL (0.2-1.2); Calc. Creatinine Clearance 18 mL/min (70-130); Calcium 8.3 mg/dL (7.8-10.44); Carbon Dioxide 27 mmol/L (23-31); Chloride 99 mmol/L (98-107); Globulin 3.8 g/dL (2.4-3.5); Glucose 140 mg/dL (83-110); Potassium 4.1 mmol/L (3.5-5.1); Protein, Total 6.6 g/dL (5.8-8.1); Sodium 139 mmol/L (136-145)
[2021-03-07 05:22] LABS: Hemoglobin 8.2 g/dL (13.5-17.5); Mean Corpuscular HGB CONC 29.3 g/dL (32.0-36.0); Mean Corpuscular Hemoglobin 25.6 pg (27.0-33.0); Mean Corpuscular Volume 87.5 fl (81.2-95.1); Mean Platelet Volume 11.6 fl (7.4-10.4); Platelet Count 275 10x3/uL (150-450); RBC Distribution Width 15.1 % (11.5-14.5); White Blood Cell (WBC) Count 13.7 10x3/uL (3.5-10.5)
[2021-03-07 07:02] LABS: Platelet Morphology Comment Appears Adequate; RBC Morphology Normal
[2021-03-07] MEDS ORDERED: Metoclopramide HCl 10 MG/2 ML VIAL IVP PRN (07:27)
[2021-03-07] MEDS: Tiotropium Bromide 4 GM INHALER IH SCH (08:46)
[2021-03-07] MEDS: Ferrous Sulfate 325 MG TAB PO SCH (09:21)
[2021-03-07] MEDS: Ascorbic Acid 500 mg Chewable Tablet PO SCH (09:21)
[2021-03-07] MEDS: Mag-Al 1200 mg/1200 mg/30 ML UDCUP PO SCH ×4 (09:21→19:28)
[2021-03-07] MEDS: Carvedilol 25 MG TAB PO SCH ×2 (09:22→17:05)
[2021-03-07] MEDS: Docusate 100 MG CAP PO SCH ×2 (09:22→19:28)
[2021-03-07] MEDS: methylPREDNISolone Sod Succ 40 MG VIAL IVP SCH ×2 (09:22→19:28)
[2021-03-07] MEDS: Cholecalciferol 1,000 UNITS (25 MCG) TAB PO SCH (09:22)
[2021-03-07] MEDS: Clopidogrel Bisulfate 75 MG TAB PO SCH (09:22)
[2021-03-07] MEDS: Enoxaparin Sodium 30 MG/0.3 ML SYRINGE SC SCH (09:22)
[2021-03-07] MEDS: Amlodipine 10 MG TAB PO SCH (09:24)
[2021-03-07] MEDS: Zinc Sulfate 220 MG CAP PO SCH (09:25)
[2021-03-07] MEDS: HumaLOG 300 UNITS/3 ML VIAL SC PRN ×3 (11:51→21:03)
[2021-03-07] MEDS: Sodium Chloride 0.9% 1,000 ML IV SCH (19:45)
[2021-03-08] MEDS: Ventolin HFA Inhaler 60 PUFF INHALER INH SCH ×4 (01:40→20:08)
[2021-03-08 06:03] VITALS: BMI 22.7
[2021-03-08] MEDS: Enoxaparin Sodium 30 MG/0.3 ML SYRINGE SC SCH (07:53)
[2021-03-08] MEDS: Docusate 100 MG CAP PO SCH ×2 (07:54→20:29)
[2021-03-08] MEDS: methylPREDNISolone Sod Succ 40 MG VIAL IVP SCH ×2 (07:54→20:29)
[2021-03-08] MEDS: Ascorbic Acid 500 mg Chewable Tablet PO SCH (07:54)
[2021-03-08] MEDS: Ferrous Sulfate 325 MG TAB PO SCH (07:54)
[2021-03-08] MEDS: Cholecalciferol 1,000 UNITS (25 MCG) TAB PO SCH (07:54)
[2021-03-08] MEDS: guaiFENesin 100 MG/5 ML UDCUP PO PRN ×2 (07:54→12:12)
[2021-03-08] MEDS: Amlodipine 10 MG TAB PO SCH (07:54)
[2021-03-08] MEDS: Clopidogrel Bisulfate 75 MG TAB PO SCH (07:55)
[2021-03-08] MEDS: Carvedilol 25 MG TAB PO SCH ×2 (07:55→17:22)
[2021-03-08] MEDS: Zinc Sulfate 220 MG CAP PO SCH (07:55)
[2021-03-08 08:55] LABS: Albumin 2.7 g/dL (3.4-4.8); Anion Gap 15 mmol/L (10-20); BUN (Urea Nitrogen) 104 mg/dL (8.4-25.7); BUN/Creatinine Ratio 35.49; Calc. Creatinine Clearance 21 mL/min (70-130); Calcium 8.4 mg/dL (7.8-10.44); Carbon Dioxide 27 mmol/L (23-31); Chloride 103 mmol/L (98-107); Glucose 138 mg/dL (83-110); Phosphorus 3.5 mg/dL (2.3-4.7); Potassium 3.9 mmol/L (3.5-5.1); Sodium 141 mmol/L (136-145)
[2021-03-08] MEDS: Mag-Al 1200 mg/1200 mg/30 ML UDCUP PO SCH ×4 (09:00→20:30)
[2021-03-08] MEDS: Tiotropium Bromide 4 GM INHALER IH SCH (09:24)
[2021-03-08] MEDS: Sodium Chloride 0.9% 1,000 ML IV SCH (11:34)
[2021-03-08] MEDS: HumaLOG 300 UNITS/3 ML VIAL SC PRN ×2 (11:57→18:10)
[2021-03-09] MEDS: Ventolin HFA Inhaler 60 PUFF INHALER INH SCH ×4 (01:13→20:05)
[2021-03-09] MEDS: Sodium Chloride 0.9% 1,000 ML IV SCH ×2 (03:57→16:34)
[2021-03-09 05:21] LABS: Hemoglobin 8.7 g/dL (13.5-17.5); Mean Corpuscular HGB CONC 29.7 g/dL (32.0-36.0); Mean Corpuscular Volume 87.5 fl (81.2-95.1); Mean Platelet Volume 11.2 fl (7.4-10.4); Platelet Count 247 10x3/uL (150-450); RBC Distribution Width 15.1 % (11.5-14.5); Red Blood Cell (RBC) Count 3.35 10x6/uL (4.32-5.72); White Blood Cell (WBC) Count 16.1 10x3/uL (3.5-10.5)
[2021-03-09 05:45] LABS: Sodium 141 mmol/L (136-145)
[2021-03-09 05:46] LABS: Albumin 2.7 g/dL (3.4-4.8); Anion Gap 15 mmol/L (10-20); BUN (Urea Nitrogen) 101 mg/dL (8.4-25.7); BUN/Creatinine Ratio 35.56; Calc. Creatinine Clearance 21 mL/min (70-130); Carbon Dioxide 25 mmol/L (23-31); Chloride 106 mmol/L (98-107); Glucose 204 mg/dL (83-110); Phosphorus 3.8 mg/dL (2.3-4.7); Potassium 4.6 mmol/L (3.5-5.1)
[2021-03-09 06:48] LABS: MDiff Complete? YES
[2021-03-09 06:56] LABS: Band 3 % (5-11); Eosinophils 3 % (0-10); Lymphocytes 3 % (21-51); Monocytes 2 % (0-10); Neutrophil 89 % (42-75)
[2021-03-09 06:57] LABS: Poikilocytosis MODERATE=16-30 cells (100X) (0-5/hpf)
[2021-03-09 06:58] LABS: Ovalocytes SLIGHT = 2-5 cells (100X) (0-1/hpf); Tear Drops SLIGHT = 2-5 cells (100X) (0-1/hpf)
[2021-03-09 06:59] LABS: Platelet Morphology Comment Appears Adequate
[2021-03-09] MEDS: Tiotropium Bromide 4 GM INHALER IH SCH (07:13)
[2021-03-09] MEDS: Enoxaparin Sodium 30 MG/0.3 ML SYRINGE SC SCH (07:28)
[2021-03-09] MEDS: Docusate 100 MG CAP PO SCH ×2 (07:28→21:03)
[2021-03-09] MEDS: Cholecalciferol 1,000 UNITS (25 MCG) TAB PO SCH (07:28)
[2021-03-09] MEDS: Zinc Sulfate 220 MG CAP PO SCH (07:29)
[2021-03-09] MEDS: Ferrous Sulfate 325 MG TAB PO SCH (07:29)
[2021-03-09] MEDS: Carvedilol 25 MG TAB PO SCH ×2 (07:29→16:36)
[2021-03-09] MEDS: Clopidogrel Bisulfate 75 MG TAB PO SCH (07:30)
[2021-03-09] MEDS: Ascorbic Acid 500 mg Chewable Tablet PO SCH (07:30)
[2021-03-09] MEDS: Amlodipine 10 MG TAB PO SCH (07:30)
[2021-03-09] MEDS: methylPREDNISolone Sod Succ 40 MG VIAL IVP SCH ×2 (07:31→21:03)
[2021-03-09] MEDS: Mag-Al 1200 mg/1200 mg/30 ML UDCUP PO SCH ×4 (07:32→21:04)
[2021-03-09] MEDS: guaiFENesin 100 MG/5 ML UDCUP PO PRN (07:40)
[2021-03-09] MEDS ORDERED: guaiFENesin 100 MG/5 ML UDCUP ONE (07:41)
[2021-03-09] MEDS: HumaLOG 300 UNITS/3 ML VIAL SC PRN ×2 (16:35→20:52)
[2021-03-10] MEDS: Ventolin HFA Inhaler 60 PUFF INHALER INH SCH ×4 (01:45→19:30)
[2021-03-10] MEDS: Sodium Chloride 0.9% 1,000 ML IV SCH (02:43)
[2021-03-10 05:03] LABS: Albumin 2.7 g/dL (3.4-4.8); Anion Gap 13 mmol/L (10-20); BUN (Urea Nitrogen) 94 mg/dL (8.4-25.7); BUN/Creatinine Ratio 36.72; Calc. Creatinine Clearance 24 mL/min (70-130); Calcium 7.9 mg/dL (7.8-10.44); Carbon Dioxide 23 mmol/L (23-31); Chloride 110 mmol/L (98-107); Glucose 143 mg/dL (83-110); Phosphorus 3.2 mg/dL (2.3-4.7); Potassium 4.2 mmol/L (3.5-5.1); Sodium 142 mmol/L (136-145)
[2021-03-10] MEDS: methylPREDNISolone Sod Succ 40 MG VIAL IVP SCH (07:24)
[2021-03-10] MEDS: Mag-Al 1200 mg/1200 mg/30 ML UDCUP PO SCH ×4 (07:24→21:01)
[2021-03-10] MEDS: Enoxaparin Sodium 30 MG/0.3 ML SYRINGE SC SCH (07:24)
[2021-03-10] MEDS: Zinc Sulfate 220 MG CAP PO SCH (07:25)
[2021-03-10] MEDS: Ferrous Sulfate 325 MG TAB PO SCH (07:26)
[2021-03-10] MEDS: Docusate 100 MG CAP PO SCH ×2 (07:26→20:54)
[2021-03-10] MEDS: Amlodipine 10 MG TAB PO SCH (07:27)
[2021-03-10] MEDS: Ascorbic Acid 500 mg Chewable Tablet PO SCH (07:27)
[2021-03-10] MEDS: Carvedilol 25 MG TAB PO SCH ×2 (07:27→17:48)
[2021-03-10] MEDS: Clopidogrel Bisulfate 75 MG TAB PO SCH (07:28)
[2021-03-10] MEDS: Cholecalciferol 1,000 UNITS (25 MCG) TAB PO SCH (07:28)
[2021-03-10] MEDS: Tiotropium Bromide 4 GM INHALER IH SCH (07:46)
[2021-03-10] MEDS ORDERED: Levofloxacin 500 mg/D5W 100 ml Premix Bag ONE (07:48)
[2021-03-10] MEDS: Lactated Ringer's 1,000 ML IV SCH (14:28)
[2021-03-10] MEDS: Acetaminophen 325 MG TAB PO PRN (20:54)
[2021-03-10] MEDS: HumaLOG 300 UNITS/3 ML VIAL SC PRN (21:01)
[2021-03-11] MEDS: Ventolin HFA Inhaler 60 PUFF INHALER INH SCH ×2 (01:28→07:24)
[2021-03-11 06:18] LABS: Hemoglobin 8.1 g/dL (13.5-17.5)
[2021-03-11 06:33] LABS: Albumin 2.5 g/dL (3.4-4.8); Anion Gap 12 mmol/L (10-20); BUN (Urea Nitrogen) 84 mg/dL (8.4-25.7); BUN/Creatinine Ratio 35.59; Calc. Creatinine Clearance 27 mL/min (70-130); Calcium 7.9 mg/dL (7.8-10.44); Carbon Dioxide 25 mmol/L (23-31); Chloride 111 mmol/L (98-107); Glucose 85 mg/dL (83-110); Iron 65 ug/dL (65-175); Iron Binding Capacity, Total 105 mcg/dL (261-462); Phosphorus 2.8 mg/dL (2.3-4.7); Potassium 4.1 mmol/L (3.5-5.1); Sodium 144 mmol/L (136-145)
[2021-03-11] MEDS: Tiotropium Bromide 4 GM INHALER IH SCH (07:24)
[2021-03-11] MEDS ORDERED: Albuterol Sulfate 2.5 mg/3 ml Neb NEB PRN (07:50)
[2021-03-11] MEDS: Lactated Ringer's 1,000 ML IV SCH (07:52)
[2021-03-11] MEDS ORDERED: Epoetin (ESRD) 10,000 UNITS/ML VIAL SC SCH (08:00)
[2021-03-11] MEDS: Zinc Sulfate 220 MG CAP PO SCH (08:12)
[2021-03-11] MEDS: Ascorbic Acid 500 mg Chewable Tablet PO SCH (08:12)
[2021-03-11] MEDS: Cholecalciferol 1,000 UNITS (25 MCG) TAB PO SCH (08:12)
[2021-03-11] MEDS: Ferrous Sulfate 325 MG TAB PO SCH (08:13)
[2021-03-11] MEDS: Carvedilol 25 MG TAB PO SCH ×2 (08:13→17:14)
[2021-03-11] MEDS: Clopidogrel Bisulfate 75 MG TAB PO SCH (08:13)
[2021-03-11] MEDS: Amlodipine 10 MG TAB PO SCH (08:13)
[2021-03-11] MEDS: predniSONE 20 MG TAB PO SCH (08:13)
[2021-03-11] MEDS: Docusate 100 MG CAP PO SCH ×3 (08:13→21:50)
[2021-03-11] MEDS: Enoxaparin Sodium 30 MG/0.3 ML SYRINGE SC SCH (08:14)
[2021-03-11] MEDS: Mag-Al 1200 mg/1200 mg/30 ML UDCUP PO SCH ×5 (09:56→21:50)
[2021-03-11] MEDS ORDERED: Albuterol Sulfate 2.5 mg/3 ml Neb NEB SCH (13:00)
[2021-03-12] MEDS: Acetaminophen 325 MG TAB PO PRN (01:09)
[2021-03-12] MEDS: guaiFENesin 100 MG/5 ML UDCUP PO PRN (03:52)
[2021-03-12 05:36] LABS: Albumin 2.6 g/dL (3.4-4.8); Anion Gap 12 mmol/L (10-20); BUN (Urea Nitrogen) 76 mg/dL (8.4-25.7); BUN/Creatinine Ratio 34.08; Calc. Creatinine Clearance 28 mL/min (70-130); Carbon Dioxide 25 mmol/L (23-31); Chloride 112 mmol/L (98-107); Glucose 94 mg/dL (83-110); Phosphorus 2.7 mg/dL (2.3-4.7); Potassium 4.2 mmol/L (3.5-5.1); Sodium 145 mmol/L (136-145)
[2021-03-12] MEDS: predniSONE 20 MG TAB PO SCH (10:15)
[2021-03-12] MEDS: Enoxaparin Sodium 30 MG/0.3 ML SYRINGE SC SCH (10:15)
[2021-03-12] MEDS: Docusate 100 MG CAP PO SCH ×2 (10:15→21:24)
[2021-03-12] MEDS: Amlodipine 10 MG TAB PO SCH (10:16)
[2021-03-12] MEDS: Clopidogrel Bisulfate 75 MG TAB PO SCH (10:16)
[2021-03-12] MEDS: Mag-Al 1200 mg/1200 mg/30 ML UDCUP PO SCH ×5 (10:16→21:26)
[2021-03-12] MEDS: Ferrous Sulfate 325 MG TAB PO SCH (10:16)
[2021-03-12] MEDS: Ascorbic Acid 500 mg Chewable Tablet PO SCH (10:16)
[2021-03-12] MEDS: Cholecalciferol 1,000 UNITS (25 MCG) TAB PO SCH (10:16)
[2021-03-12] MEDS: Carvedilol 25 MG TAB PO SCH ×2 (10:16→18:18)
[2021-03-12] MEDS: Zinc Sulfate 220 MG CAP PO SCH (10:16)
[2021-03-13 05:53] LABS: Albumin 2.6 g/dL (3.4-4.8); Anion Gap 11 mmol/L (10-20); BUN (Urea Nitrogen) 69 mg/dL (8.4-25.7); BUN/Creatinine Ratio 32.09; Calc. Creatinine Clearance 29 mL/min (70-130); Calcium 8.1 mg/dL (7.8-10.44); Carbon Dioxide 25 mmol/L (23-31); Chloride 114 mmol/L (98-107); Glucose 104 mg/dL (83-110); Phosphorus 2.7 mg/dL (2.3-4.7); Potassium 4.2 mmol/L (3.5-5.1); Sodium 146 mmol/L (136-145)
[2021-03-13] MEDS: Amlodipine 10 MG TAB PO SCH (09:28)
[2021-03-13] MEDS: predniSONE 20 MG TAB PO SCH (09:28)
[2021-03-13] MEDS: Mag-Al 1200 mg/1200 mg/30 ML UDCUP PO SCH ×4 (09:28→20:02)
[2021-03-13] MEDS: Carvedilol 25 MG TAB PO SCH ×2 (09:28→17:41)
[2021-03-13] MEDS: Cholecalciferol 1,000 UNITS (25 MCG) TAB PO SCH (09:29)
[2021-03-13] MEDS: Ascorbic Acid 500 mg Chewable Tablet PO SCH (09:29)
[2021-03-13] MEDS: Zinc Sulfate 220 MG CAP PO SCH (09:29)
[2021-03-13] MEDS: Docusate 100 MG CAP PO SCH ×2 (09:29→20:02)
[2021-03-13] MEDS: Ferrous Sulfate 325 MG TAB PO SCH (09:29)
[2021-03-13] MEDS: Clopidogrel Bisulfate 75 MG TAB PO SCH (09:29)
[2021-03-13] MEDS: Enoxaparin Sodium 30 MG/0.3 ML SYRINGE SC SCH (18:41)
[2021-03-13 20:36] VITALS: BP 124/72; TEMP 97.4
== END 2021-03-13 21:08 | DRG 177 ==
LOC: CSHERS 09:55 → CSHERHOLD 13:23 → CSHTELE 21:50 → CSHICU 02-25 03:28 → CSHTELE 02-25 03:40 → CSHICU 03-04 08:00 → CSHTELE 03-08 13:02
PROVIDERS: ADMIT Family Medicine; ATTEND Internal Medicine
PROC: 8E0ZXY6 Isolation (ICD-10-PCS; principal; 2021-02-24)
PROC: 3E0333Z Introduction of Anti-inflammatory into Peripheral Vein, Percutaneous Approach (ICD-10-PCS; 2021-02-25)
PROC: 5A0955A Assistance with Respiratory Ventilation, Greater than 96 Consecutive Hours, High Flow/Velocity Cannula (ICD-10-PCS; 2021-03-04)
DX: U07.1 COVID-19 (principal); J96.21 Acute and chronic respiratory failure with hypoxia; J12.82 Pneumonia due to coronavirus disease 2019; I50.32 Chronic diastolic (congestive) heart failure; I42.9 Cardiomyopathy, unspecified; I13.0 Hypertensive heart and chronic kidney disease with heart failure and stage 1 through stage 4 chronic kidney disease, or unspecified chronic kidney disease; N18.4 Chronic kidney disease, stage 4 (severe); J44.0 Chronic obstructive pulmonary disease with (acute) lower respiratory infection; D61.818 Other pancytopenia; Q21.1 Atrial septal defect; N17.9 Acute kidney failure, unspecified; R64 Cachexia; E87.0 Hyperosmolality and hypernatremia; E44.0 Moderate protein-calorie malnutrition; M19.90 Unspecified osteoarthritis, unspecified site; Z66 Do not resuscitate; F03.90 Unspecified dementia, unspecified severity, without behavioral disturbance, psychotic disturbance, mood disturbance, and anxiety; E11.22 Type 2 diabetes mellitus with diabetic chronic kidney disease; E86.0 Dehydration; E87.5 Hyperkalemia; R74.01 Elevation of levels of liver transaminase levels; D63.1 Anemia in chronic kidney disease; I48.91 Unspecified atrial fibrillation; M06.9 Rheumatoid arthritis, unspecified; Z88.0 Allergy status to penicillin; Z79.899 Other long term (current) drug therapy; Z86.73 Personal history of transient ischemic attack (TIA), and cerebral infarction without residual deficits; Z79.891 Long term (current) use of opiate analgesic; Z79.02 Long term (current) use of antithrombotics/antiplatelets; Z87.891 Personal history of nicotine dependence; Z68.23 Body mass index [BMI] 23.0-23.9, adult
CPT/HCPCS: 0240U; 36415; 36416; 36600; 71045; 74018; 76604; 80048; 80053; 80069; 80202; 81001; 82570; 82728; 82805; 83540; 83550; 83605; 83735; 83880; 84100; 84156; 84300; 84484; 84540; 85007; 85014; 85018; 85025; 85027; 86140; 87040; 87086; 93005; 93306; 93970; 94640; 94664; 94760; 94762; 96374; J1100; J1650; J1815; J1940; J1956; J2270; J2765; J2920; J3370; J3475; J3490; J7030; J7050; J7070; J7120; J7512; J7611; J7620; J8540; Q4081

== ENCOUNTER 2021-03-15 01:46 | Inpatient (IN) | payer MEDICARE, MEDICAID ==
[2021-03-15 02:11] LABS: Hemoglobin 7.9 g/dL (13.5-17.5); Mean Corpuscular Hemoglobin 25.8 pg (27.0-33.0); Mean Corpuscular Volume 88.9 fl (81.2-95.1); Mean Platelet Volume 10.5 fl (7.4-10.4); Platelet Count 136 10x3/uL (150-450); RBC Distribution Width 15.8 % (11.5-14.5); Red Blood Cell (RBC) Count 3.06 10x6/uL (4.32-5.72); White Blood Cell (WBC) Count 21.5 10x3/uL (3.5-10.5)
[2021-03-15 02:21] LABS: MDiff Complete? YES
[2021-03-15 02:22] LABS: ALT (SGPT) 9 U/L (8-55); AST (SGOT) 17 U/L (5-34); Albumin 2.7 g/dL (3.4-4.8); Alkaline Phosphatase 66 U/L (40-110); Anion Gap 11 mmol/L (10-20); BUN (Urea Nitrogen) 58 mg/dL (8.4-25.7); Bilirubin, Total 0.8 mg/dL (0.2-1.2); CK (CPK) 37 U/L (30-200); Calc. Creatinine Clearance 0 mL/min (70-130); Calcium 7.9 mg/dL (7.8-10.44); Carbon Dioxide 26 mmol/L (23-31); Chloride 111 mmol/L (98-107); Globulin 3.3 g/dL (2.4-3.5); Glucose 104 mg/dL (83-110); Lipase 44 U/L (8-78); Magnesium 2.2 mg/dL (1.6-2.6); Potassium 4.6 mmol/L (3.5-5.1); Sodium 143 mmol/L (136-145)
[2021-03-15 02:31] LABS: Band 3 % (5-11); Lymphocytes 1 % (21-51); Metamyelocyte 3 % (0-0); Monocytes 8 % (0-10); Myelocyte 3 % (0-0); Neutrophil 82 % (42-75)
[2021-03-15 02:32] LABS: Hypochromia SLIGHT = 6-15 cells (100X) (0-5/hpf); Platelet Morphology Comment Appears Adequate
[2021-03-15] MEDS ORDERED: Morphine 4 MG/ML VIAL ONE (03:01)
[2021-03-15] MEDS ORDERED: Ondansetron PF 4 MG/2 ML Vial ONE ×2 (03:01→03:02)
[2021-03-15] MEDS ORDERED: Pantoprazole 40 MG VIAL ONE (03:02)
[2021-03-15] MEDS ORDERED: Furosemide 40 MG/4 ML VIAL ONE ×2 (04:37→15:35)
[2021-03-15 06:11] LABS: Bilirubin Neg (Negative); Blood, Urine Negative (Negative); Clarity Clear (Clear); Glucose, Urine (Dipstick) Normal (Negative); Ketone, Urine Negative (Negative); Leukocyte Negative (Negative); Nitrite Negative (Negative); Protein, Urine (Dipstick) 30 mg/dl (Neg-Trace); Urobilinogen Normal mg/dL (Less than 2)
[2021-03-15] MEDS ORDERED: cefTRIAXone\\ROCEPHIN 1 GM VIAL ONE (06:16)
[2021-03-15 06:18] LABS: Bacteria/HPF Rare-Few HPF (None Seen); RBC/HPF None Seen HPF (0-3); Squamous Epithelial 0-3 HPF (0-3); WBC/HPF 0-3 HPF (0-3); Yeast-Budding 1+ HPF (None Seen)
[2021-03-15] MEDS ORDERED: metroNIDAZOLE 500 MG/100 ML BAG ONE ×2 (07:31→21:09)
[2021-03-15] MEDS ORDERED: Polyethylene Glycol 3350 17 GM Packet PO PRN (08:23)
[2021-03-15] MEDS ORDERED: Dextrose 5% in Water 1,000 ML IV PRN (08:24)
[2021-03-15] MEDS ORDERED: HumaLOG 300 UNITS/3 ML VIAL SC PRN ×2 (08:24)
[2021-03-15] MEDS ORDERED: Dextrose 50% Abboject 50 ML SYRINGE SLOW IVP PRN (08:24)
[2021-03-15] MEDS ORDERED: Clopidogrel Bisulfate 75 MG TAB PO SCH (09:00)
[2021-03-15] MEDS ORDERED: Mineral Oil ENEMA PR SCH (09:00)
[2021-03-15] MEDS ORDERED: Magnesium Citrate 300 ML BOT PO SCH (09:00)
[2021-03-15] MEDS ORDERED: Acetaminophen 325 MG TAB PO PRN (09:01)
[2021-03-15] MEDS ORDERED: Ondansetron ODT 4 MG TAB PO PRN (09:01)
[2021-03-15 09:40] LABS: Magnesium 2.1 mg/dL (1.6-2.6)
[2021-03-15 09:44] LABS: Troponin I 0.013 ng/mL (< 0.028)
[2021-03-15] MEDS ORDERED: Amlodipine 5 MG TAB ONE (09:45)
[2021-03-15] MEDS: Ferrous Sulfate 325 MG TAB PO SCH (10:30)
[2021-03-15] MEDS: Senokot S 8.6-50 MG TAB PO SCH ×2 (10:30→21:15)
[2021-03-15] MEDS: guaiFENesin ER 600 MG TAB PO SCH ×2 (10:30→21:15)
[2021-03-15] MEDS: Amlodipine 10 MG TAB PO SCH (10:30)
[2021-03-15 11:58] LABS: Troponin I 0.012 ng/mL (< 0.028)
[2021-03-15 12:15] LABS: SARS-CoV-2 NAA Rapid Test DETECTED (NotDetected)
[2021-03-15] MEDS ORDERED: Ipratropium Bromide 2.5 ml Neb NEB SCH (13:00)
[2021-03-15] MEDS: Furosemide 40 MG/4 ML VIAL SLOW IVP SCH (15:30)
[2021-03-15] MEDS ORDERED: Ventolin HFA Inhaler 60 PUFF INHALER INH PRN (15:37)
[2021-03-15] MEDS ORDERED: INCRUSE ELLIPTA 62.5 MCG INH SCH (19:00)
[2021-03-15] MEDS: Carvedilol 25 MG TAB PO SCH (19:59)
[2021-03-15] MEDS ORDERED: Carvedilol 25 MG TAB ONE (20:02)
[2021-03-15] MEDS: metroNIDAZOLE 500 MG in Premix Bag 1 BAG IVPB SCH (21:12)
[2021-03-16 05:52] LABS: Hemoglobin 7.2 g/dL (13.5-17.5); Mean Corpuscular HGB CONC 27.8 g/dL (32.0-36.0); Mean Corpuscular Hemoglobin 25.7 pg (27.0-33.0); Mean Corpuscular Volume 92.5 fl (81.2-95.1); Mean Platelet Volume 11.2 fl (7.4-10.4); Platelet Count 107 10x3/uL (150-450); RBC Distribution Width 15.9 % (11.5-14.5); White Blood Cell (WBC) Count 16.6 10x3/uL (3.5-10.5)
[2021-03-16] MEDS: Furosemide 40 MG/4 ML VIAL SLOW IVP SCH ×2 (05:56→14:02)
[2021-03-16] MEDS ORDERED: cefTRIAXone\\ROCEPHIN 1 GM in Sodium Chloride 0.9% 100 ML IVPB SCH (06:00)
[2021-03-16 06:06] LABS: MDiff Complete? YES
[2021-03-16 06:09] LABS: Anion Gap 13 mmol/L (10-20); BUN (Urea Nitrogen) 55 mg/dL (8.4-25.7); Band 6 % (5-11); Calc. Creatinine Clearance 27 mL/min (70-130); Carbon Dioxide 27 mmol/L (23-31); Chloride 111 mmol/L (98-107); Glucose 82 mg/dL (83-110); Lymphocytes 8 % (21-51); Monocytes 6 % (0-10); Myelocyte 1 % (0-0); Neutrophil 79 % (42-75); Potassium 4.9 mmol/L (3.5-5.1); Sodium 146 mmol/L (136-145)
[2021-03-16 06:25] LABS: Basophilic Stippling SLIGHT = 1-2 cells (100X) (None Seen); Hypochromia SLIGHT = 6-15 cells (100X) (0-5/hpf); Platelet Morphology Comment Appears Decreased
[2021-03-16] MEDS: metroNIDAZOLE 500 MG in Premix Bag 1 BAG IVPB SCH ×2 (09:12→20:45)
[2021-03-16] MEDS: Ferrous Sulfate 325 MG TAB PO SCH (09:12)
[2021-03-16] MEDS: Amlodipine 10 MG TAB PO SCH (09:12)
[2021-03-16] MEDS: Carvedilol 25 MG TAB PO SCH ×2 (09:13→16:34)
[2021-03-16] MEDS: guaiFENesin ER 600 MG TAB PO SCH ×2 (09:13→20:07)
[2021-03-16] MEDS: Senokot S 8.6-50 MG TAB PO SCH ×2 (09:20→20:07)
[2021-03-16 13:28] LABS: ALV-art Gradient 562.825 mmHg (0-20); Actual Bicarbonate (HCO3a) 27.7 mEq/L (22-28); Base Excess (BEa) 1.8 mEq/L (-2.0 to +3.0); CO2 Tension 50.3 mmHg (35.0-45.0); Calcium, Ionized (arterial) 1.12 mmol/L (1.12-1.30); Carboxyhemoglobin (COHb) 0.5 gm% (0.0-3.0); Hemoglobin (Hb) 7.8 g/dL (14.0-18.0); O2 Tension (PaO2), arterial 87.3 mmHg (> 70.0); Potassium - ABG Lab 4.8 mmol/L (3.70-5.30); Puncture Site LRA; pH, Arterial 7.36 (7.35-7.45)
[2021-03-16] MEDS ORDERED: VANCOMYCIN 1.25 GM/250 ML BAG 1.25 GM in Premix Bag 1 BAG IVPB SCH (14:30)
[2021-03-16] MEDS ORDERED: Lidocaine 1% PF 5 ML VIAL ONE (15:27)
[2021-03-16] MEDS ORDERED: Sodium Bicarbonate 2.5 MEQ/5 ML VIAL ONE (15:28)
[2021-03-16] MEDS ORDERED: Fentanyl 100 MCG/2 ML VIAL ONE (15:28)
[2021-03-16] MEDS ORDERED: Midazolam HCl 5 mg/5 ml Vial ONE (15:29)
[2021-03-16] MEDS ORDERED: Cefepime 1 GM in Sodium Chloride 0.9% 100 ML IVPB SCH (16:00)
[2021-03-16] MEDS ORDERED: Cefepime 2 GM in Sodium Chloride 0.9% 100 ML IVPB SCH (16:00)
[2021-03-16 16:11] LABS: Fluid, pH - Pleural Fld 7.43 (7.60 - 7.66)
[2021-03-16] MEDS ORDERED: Cefepime 2 GM VIAL ONE (16:19)
[2021-03-16 17:23] LABS: Body Fluid Source Thoracentesis Fluid; Tube # EDTA
[2021-03-16 17:24] LABS: BF Color Yellow; Clarity Hazy (Clear)
[2021-03-16 18:27] LABS: BF Segmented Neutrophils 66 %; Cell Count Non Hematic 3 %; Lymphocytes 31 %
[2021-03-16 21:11] LABS: Pleural Fluid, Protein 2.4 g/dL
[2021-03-17] MEDS: Guaifenesin DM 100-10/5 ML UDCUP PO PRN (00:17)
[2021-03-17 04:20] LABS: Hemoglobin 6.8 g/dL (13.5-17.5); Mean Corpuscular HGB CONC 28.2 g/dL (32.0-36.0); Mean Platelet Volume 11.4 fl (7.4-10.4); Platelet Count 110 10x3/uL (150-450); RBC Distribution Width 15.9 % (11.5-14.5); Red Blood Cell (RBC) Count 2.62 10x6/uL (4.32-5.72); White Blood Cell (WBC) Count 16.4 10x3/uL (3.5-10.5)
[2021-03-17 04:25] LABS: Anion Gap 13 mmol/L (10-20); BUN (Urea Nitrogen) 54 mg/dL (8.4-25.7); Calc. Creatinine Clearance 26 mL/min (70-130); Calcium 7.7 mg/dL (7.8-10.44); Carbon Dioxide 26 mmol/L (23-31); Chloride 110 mmol/L (98-107); Glucose 70 mg/dL (83-110); Phosphorus 3.1 mg/dL (2.3-4.7); Potassium 4.6 mmol/L (3.5-5.1); Sodium 144 mmol/L (136-145)
[2021-03-17 05:27] LABS: MDiff Complete? YES; Manual Diff?? YES; Platelet Morphology Comment Appears Decreased; Stomatocytes SLIGHT = 2-5 cells (100X) (0-1/hpf)
[2021-03-17 05:28] LABS: Hypochromia MODERATE=16-30 cells (100X) (0-5/hpf)
[2021-03-17 05:30] LABS: Band 2 % (5-11); Lymphocytes 3 % (21-51); Monocytes 11 % (0-10); Neutrophil 84 % (42-75); Nucleated RBC 1 % (0)
[2021-03-17] MEDS: Furosemide 40 MG/4 ML VIAL SLOW IVP SCH ×2 (06:27→14:19)
[2021-03-17] MEDS: Senokot S 8.6-50 MG TAB PO SCH ×2 (08:21→21:27)
[2021-03-17] MEDS: Ferrous Sulfate 325 MG TAB PO SCH (08:21)
[2021-03-17] MEDS: Carvedilol 25 MG TAB PO SCH ×2 (08:21→16:08)
[2021-03-17] MEDS: Amlodipine 10 MG TAB PO SCH (08:21)
[2021-03-17] MEDS: metroNIDAZOLE 500 MG in Premix Bag 1 BAG IVPB SCH ×2 (08:22→21:27)
[2021-03-17] MEDS: guaiFENesin ER 600 MG TAB PO SCH ×2 (08:22→21:26)
[2021-03-17 14:06] LABS: Vancomycin, Random 15.7 ug/mL (See Comment)
[2021-03-17] MEDS: Cefepime 1 GM in Sodium Chloride 0.9% 100 ML IVPB SCH (15:30)
[2021-03-17] MEDS ORDERED: Vancomycin HCl 1 GM in Sodium Chloride 0.9% 250 ML 250 ML IVPB SCH (21:00)
[2021-03-18] MEDS ORDERED: Vancomycin HCl 1 GM in Sodium Chloride 0.9% 250 ML 250 ML IVPB SCH (02:00)
[2021-03-18] MEDS: Furosemide 40 MG/4 ML VIAL SLOW IVP SCH ×2 (05:18→14:26)
[2021-03-18] MEDS: Carvedilol 25 MG TAB PO SCH ×2 (08:55→16:08)
[2021-03-18] MEDS: Amlodipine 10 MG TAB PO SCH (08:55)
[2021-03-18] MEDS: Ferrous Sulfate 325 MG TAB PO SCH (08:56)
[2021-03-18] MEDS: guaiFENesin ER 600 MG TAB PO SCH ×2 (08:56→20:02)
[2021-03-18] MEDS: Benzonatate 100 MG CAP PO PRN ×2 (08:57→18:26)
[2021-03-18] MEDS: Guaifenesin DM 100-10/5 ML UDCUP PO PRN (08:57)
[2021-03-18] MEDS: Senokot S 8.6-50 MG TAB PO SCH ×2 (08:58→20:02)
[2021-03-18 11:50] LABS: Hemoglobin 6.9 g/dL (13.5-17.5); Mean Corpuscular HGB CONC 29.4 g/dL (32.0-36.0); Mean Corpuscular Hemoglobin 26.1 pg (27.0-33.0); Mean Platelet Volume 11.1 fl (7.4-10.4); Platelet Count 99 10x3/uL (150-450); RBC Distribution Width 16.1 % (11.5-14.5); Red Blood Cell (RBC) Count 2.64 10x6/uL (4.32-5.72); White Blood Cell (WBC) Count 11.7 10x3/uL (3.5-10.5)
[2021-03-18 12:02] LABS: ALT (SGPT) 6 U/L (8-55); AST (SGOT) 11 U/L (5-34); Albumin 2.3 g/dL (3.4-4.8); Alkaline Phosphatase 59 U/L (40-110); Anion Gap 10 mmol/L (10-20); BUN (Urea Nitrogen) 51 mg/dL (8.4-25.7); Bilirubin, Total 0.5 mg/dL (0.2-1.2); Calc. Creatinine Clearance 24 mL/min (70-130); Calcium 7.7 mg/dL (7.8-10.44); Carbon Dioxide 28 mmol/L (23-31); Chloride 106 mmol/L (98-107); Globulin 3.2 g/dL (2.4-3.5); Glucose 83 mg/dL (83-110); Potassium 4.1 mmol/L (3.5-5.1); Protein, Total 5.5 g/dL (5.8-8.1); Sodium 140 mmol/L (136-145)
[2021-03-18] MEDS: metroNIDAZOLE 500 MG in Premix Bag 1 BAG IVPB SCH ×2 (12:05→20:02)
[2021-03-18 12:20] LABS: MDiff Complete? YES
[2021-03-18 12:35] LABS: Lymphocytes 4 % (21-51); Monocytes 12 % (0-10)
[2021-03-18 12:36] LABS: Band 3 % (5-11); Neutrophil 81 % (42-75)
[2021-03-18 12:37] LABS: Anisocytosis SLIGHT = 6-15 cells (100X) (0-5/hpf); Hypochromia SLIGHT = 6-15 cells (100X) (0-5/hpf); Polychromasia SLIGHT = 2-3 cells (100X) (0-2/hpf)
[2021-03-18 12:38] LABS: Platelet Morphology Comment Appears Decreased
[2021-03-18] MEDS: Cefepime 1 GM in Sodium Chloride 0.9% 100 ML IVPB SCH (16:08)
[2021-03-18] MEDS: Mometasone/Formoterol 60 PUFF AER INH SCH (19:55)
[2021-03-19] MEDS: Furosemide 40 MG/4 ML VIAL SLOW IVP SCH ×2 (05:11→16:23)
[2021-03-19 05:21] LABS: ALT (SGPT) 6 U/L (8-55); AST (SGOT) 11 U/L (5-34); Albumin 2.3 g/dL (3.4-4.8); Alkaline Phosphatase 59 U/L (40-110); Anion Gap 14 mmol/L (10-20); BUN (Urea Nitrogen) 54 mg/dL (8.4-25.7); Bilirubin, Total 0.5 mg/dL (0.2-1.2); Calc. Creatinine Clearance 24 mL/min (70-130); Calcium 7.7 mg/dL (7.8-10.44); Carbon Dioxide 25 mmol/L (23-31); Chloride 107 mmol/L (98-107); Globulin 3.3 g/dL (2.4-3.5); Glucose 86 mg/dL (83-110); Potassium 4.5 mmol/L (3.5-5.1); Protein, Total 5.6 g/dL (5.8-8.1); Sodium 141 mmol/L (136-145)
[2021-03-19 05:51] LABS: #Monocytes 1.2 10x3/uL (0.0-1.1); #Neutrophils 9.2 10x3/uL (1.5-8.4); %Basophils 0.1 % (0.0-2.0); %Lymphocytes 3.3 % (18.0-47.0); %Monocytes 10.7 % (0.0-10.0); Hemoglobin 6.8 g/dL (13.5-17.5); Mean Corpuscular HGB CONC 29.2 g/dL (32.0-36.0); Mean Corpuscular Hemoglobin 25.8 pg (27.0-33.0); Mean Corpuscular Volume 88.3 fl (81.2-95.1); Mean Platelet Volume 11.4 fl (7.4-10.4); Platelet Count 104 10x3/uL (150-450); RBC Distribution Width 16.5 % (11.5-14.5); Red Blood Cell (RBC) Count 2.64 10x6/uL (4.32-5.72); White Blood Cell (WBC) Count 11.4 10x3/uL (3.5-10.5)
[2021-03-19 07:01] LABS: Anisocytosis SLIGHT = 6-15 cells (100X) (0-5/hpf); Hypochromia SLIGHT = 6-15 cells (100X) (0-5/hpf); Macrocytosis SLIGHT = 6-15 cells (100X) (0-5/hpf); Microcytosis SLIGHT = 6-15 cells (100X) (0-5/hpf); Platelet Morphology Comment Appears Decreased; Target Cells SLIGHT = 2-5 cells (100X) (0-1/hpf)
[2021-03-19] MEDS: Mometasone/Formoterol 60 PUFF AER INH SCH ×2 (07:31→19:55)
[2021-03-19] MEDS: Tiotropium Bromide 4 GM INHALER IH SCH (07:32)
[2021-03-19 08:23] LABS: Vancomycin, Random 20.3 ug/mL (See Comment)
[2021-03-19] MEDS: guaiFENesin ER 600 MG TAB PO SCH ×2 (08:27→20:11)
[2021-03-19] MEDS: Ferrous Sulfate 325 MG TAB PO SCH (08:27)
[2021-03-19] MEDS: Amlodipine 10 MG TAB PO SCH (08:28)
[2021-03-19] MEDS: Benzonatate 100 MG CAP PO PRN (08:29)
[2021-03-19] MEDS: Carvedilol 25 MG TAB PO SCH ×2 (08:29→16:27)
[2021-03-19] MEDS: metroNIDAZOLE 500 MG in Premix Bag 1 BAG IVPB SCH ×2 (08:44→20:11)
[2021-03-19] MEDS ORDERED: Vancomycin HCl 500 MG in Sodium Chloride 0.9% 100 ML IVPB SCH (09:00)
[2021-03-19] MEDS ORDERED: Furosemide 40 MG/4 ML VIAL IVP SCH (10:00)
[2021-03-19] MEDS ORDERED: Albumin 25% 25 GM/100 ML BOT IVPB SCH (11:15)
[2021-03-19 12:04] LABS: Hemoglobin A1c 5.5 % (4.0-6.0)
[2021-03-19] MEDS: Senokot S 8.6-50 MG TAB PO SCH ×2 (14:33→20:11)
[2021-03-19] MEDS: Vancomycin HCl 500 MG in Sodium Chloride 0.9% 100 ML IVPB SCH (16:26)
[2021-03-19] MEDS: Cefepime 1 GM in Sodium Chloride 0.9% 100 ML IVPB SCH (16:27)
[2021-03-19 19:02] LABS: Legionella Urinary Ag Negative (Negative); Strep pneumo Urine Ag NEGATIVE (NEGATIVE)
[2021-03-20 04:26] VITALS: BMI 21.2
[2021-03-20] MEDS: Furosemide 40 MG/4 ML VIAL SLOW IVP SCH ×2 (05:36→13:12)
[2021-03-20 05:52] LABS: ALT (SGPT) Less than 6 U/L (8-55); AST (SGOT) 10 U/L (5-34); Albumin 2.3 g/dL (3.4-4.8); Alkaline Phosphatase 70 U/L (40-110); Anion Gap 14 mmol/L (10-20); BUN (Urea Nitrogen) 53 mg/dL (8.4-25.7); Bilirubin, Total 0.7 mg/dL (0.2-1.2); Calc. Creatinine Clearance 22 mL/min (70-130); Calcium 7.8 mg/dL (7.8-10.44); Carbon Dioxide 25 mmol/L (23-31); Chloride 105 mmol/L (98-107); Globulin 3.5 g/dL (2.4-3.5); Glucose 114 mg/dL (83-110); Potassium 4.1 mmol/L (3.5-5.1); Protein, Total 5.8 g/dL (5.8-8.1); Sodium 140 mmol/L (136-145)
[2021-03-20 05:53] LABS: Hemoglobin 8.3 g/dL (13.5-17.5); Mean Corpuscular HGB CONC 29.7 g/dL (32.0-36.0); Mean Corpuscular Hemoglobin 26.1 pg (27.0-33.0); Mean Corpuscular Volume 87.7 fl (81.2-95.1); Mean Platelet Volume 10.8 fl (7.4-10.4); Platelet Count 102 10x3/uL (150-450); RBC Distribution Width 16.2 % (11.5-14.5); Red Blood Cell (RBC) Count 3.18 10x6/uL (4.32-5.72); White Blood Cell (WBC) Count 9.5 10x3/uL (3.5-10.5)
[2021-03-20 07:26] LABS: Eosinophils 1 % (0-10); Lymphocytes 4 % (21-51); MDiff Complete? YES; Monocytes 12 % (0-10); Myelocyte 3 % (0-0); Neutrophil 80 % (42-75)
[2021-03-20] MEDS: Mometasone/Formoterol 60 PUFF AER INH SCH ×2 (07:27→18:17)
[2021-03-20] MEDS: Tiotropium Bromide 4 GM INHALER IH SCH (07:28)
[2021-03-20 07:29] LABS: Anisocytosis SLIGHT = 6-15 cells (100X) (0-5/hpf); Hypochromia SLIGHT = 6-15 cells (100X) (0-5/hpf); Polychromasia SLIGHT = 2-3 cells (100X) (0-2/hpf)
[2021-03-20 07:30] LABS: Basophilic Stippling SLIGHT = 1-2 cells (100X) (None Seen); Giant Platelets SLIGHT; Large Platelets SLIGHT; Platelet Morphology Comment Appears Decreased
[2021-03-20] MEDS: guaiFENesin ER 600 MG TAB PO SCH ×2 (09:10→20:57)
[2021-03-20] MEDS: Amlodipine 10 MG TAB PO SCH (09:10)
[2021-03-20] MEDS: Benzonatate 100 MG CAP PO PRN ×2 (09:10→16:16)
[2021-03-20] MEDS: Ferrous Sulfate 325 MG TAB PO SCH (09:10)
[2021-03-20] MEDS: Carvedilol 25 MG TAB PO SCH ×2 (09:12→15:54)
[2021-03-20] MEDS: metroNIDAZOLE 500 MG in Premix Bag 1 BAG IVPB SCH ×2 (09:18→20:57)
[2021-03-20] MEDS: Senokot S 8.6-50 MG TAB PO SCH ×2 (13:12→20:58)
[2021-03-20] MEDS: Vancomycin HCl 500 MG in Sodium Chloride 0.9% 100 ML IVPB SCH (13:54)
[2021-03-20 14:27] LABS: Vancomycin, Trough 19.3 ug/mL
[2021-03-20] MEDS: Cefepime 1 GM in Sodium Chloride 0.9% 100 ML IVPB SCH (15:47)
[2021-03-21 03:52] LABS: Platelet Count 92 10x3/uL (150-450)
[2021-03-21 03:53] LABS: #Monocytes 1.1 10x3/uL (0.0-1.1); #Neutrophils 6.3 10x3/uL (1.5-8.4); %Basophils 0.1 % (0.0-2.0); %Lymphocytes 4.8 % (18.0-47.0); %Neutrophils 77.8 % (40.0-75.0); Mean Corpuscular Hemoglobin 26.1 pg (27.0-33.0); Mean Corpuscular Volume 87.3 fl (81.2-95.1); Mean Platelet Volume 10.6 fl (7.4-10.4); RBC Distribution Width 16.5 % (11.5-14.5); Red Blood Cell (RBC) Count 3.06 10x6/uL (4.32-5.72); White Blood Cell (WBC) Count 8.1 10x3/uL (3.5-10.5)
[2021-03-21 04:13] LABS: ALT (SGPT) Less than 6 U/L (8-55); AST (SGOT) 9 U/L (5-34); Albumin 2.3 g/dL (3.4-4.8); Alkaline Phosphatase 65 U/L (40-110); Anion Gap 14 mmol/L (10-20); BUN (Urea Nitrogen) 51 mg/dL (8.4-25.7); Bilirubin, Total 0.6 mg/dL (0.2-1.2); Calc. Creatinine Clearance 23 mL/min (70-130); Calcium 7.7 mg/dL (7.8-10.44); Carbon Dioxide 26 mmol/L (23-31); Chloride 104 mmol/L (98-107); Globulin 3.4 g/dL (2.4-3.5); Glucose 82 mg/dL (83-110); Protein, Total 5.7 g/dL (5.8-8.1); Sodium 140 mmol/L (136-145)
[2021-03-21] MEDS: Furosemide 40 MG/4 ML VIAL SLOW IVP SCH ×2 (05:51→13:26)
[2021-03-21] MEDS: metroNIDAZOLE 500 MG in Premix Bag 1 BAG IVPB SCH (08:37)
[2021-03-21] MEDS: Ferrous Sulfate 325 MG TAB PO SCH (08:39)
[2021-03-21] MEDS: guaiFENesin ER 600 MG TAB PO SCH (08:39)
[2021-03-21] MEDS: Senokot S 8.6-50 MG TAB PO SCH (08:54)
[2021-03-21] MEDS: Amlodipine 10 MG TAB PO SCH (08:54)
[2021-03-21] MEDS: Carvedilol 25 MG TAB PO SCH (08:54)
[2021-03-21 08:55] VITALS: BP 105/58
[2021-03-21] MEDS: Mometasone/Formoterol 60 PUFF AER INH SCH (09:00)
[2021-03-21] MEDS ORDERED: Aspirin 81 mg Enteric Coated Tablet PO SCH (09:00)
[2021-03-21] MEDS: Tiotropium Bromide 4 GM INHALER IH SCH (09:01)
[2021-03-21 11:42] VITALS: TEMP 97.6
[2021-03-22 13:38] LABS: Fungus Stain Final report (.)
== END 2021-03-21 14:30 | disposition hospice, inpatient (51) | DRG 871 ==
LOC: CSHERS 01:46 → CSHERHOLD 09:21 → CSHTELE 03-16 00:49 → CSHICU 03-16 13:30
PROVIDERS: ADMIT Internal Medicine; ATTEND Family Medicine
PROC: 8E0ZXY6 Isolation (ICD-10-PCS; principal; 2021-03-15)
PROC: 0W993ZZ Drainage of Right Pleural Cavity, Percutaneous Approach (ICD-10-PCS; 2021-03-16)
PROC: 5A0935A Assistance with Respiratory Ventilation, Less than 24 Consecutive Hours, High Flow/Velocity Cannula (ICD-10-PCS; 2021-03-16)
DX: A41.9 Sepsis, unspecified organism (principal); U07.1 COVID-19; J96.21 Acute and chronic respiratory failure with hypoxia; J12.82 Pneumonia due to coronavirus disease 2019; I50.33 Acute on chronic diastolic (congestive) heart failure; J69.0 Pneumonitis due to inhalation of food and vomit; J86.9 Pyothorax without fistula; J44.0 Chronic obstructive pulmonary disease with (acute) lower respiratory infection; N18.4 Chronic kidney disease, stage 4 (severe); I48.20 Chronic atrial fibrillation, unspecified; I31.3 Pericardial effusion (noninflammatory); I13.0 Hypertensive heart and chronic kidney disease with heart failure and stage 1 through stage 4 chronic kidney disease, or unspecified chronic kidney disease; I42.9 Cardiomyopathy, unspecified; N39.0 Urinary tract infection, site not specified; N17.9 Acute kidney failure, unspecified; J91.8 Pleural effusion in other conditions classified elsewhere; Z66 Do not resuscitate; Z51.5 Encounter for palliative care; E11.22 Type 2 diabetes mellitus with diabetic chronic kidney disease; K52.89 Other specified noninfective gastroenteritis and colitis; R00.1 Bradycardia, unspecified; E11.649 Type 2 diabetes mellitus with hypoglycemia without coma; D63.1 Anemia in chronic kidney disease; F03.90 Unspecified dementia, unspecified severity, without behavioral disturbance, psychotic disturbance, mood disturbance, and anxiety; M06.9 Rheumatoid arthritis, unspecified; Z88.0 Allergy status to penicillin; Z79.899 Other long term (current) drug therapy; Z86.73 Personal history of transient ischemic attack (TIA), and cerebral infarction without residual deficits; Z99.81 Dependence on supplemental oxygen; Z79.891 Long term (current) use of opiate analgesic; Z79.02 Long term (current) use of antithrombotics/antiplatelets; Z79.52 Long term (current) use of systemic steroids; Z90.49 Acquired absence of other specified parts of digestive tract; Z87.11 Personal history of peptic ulcer disease; Z87.01 Personal history of pneumonia (recurrent); Z87.891 Personal history of nicotine dependence
CPT/HCPCS: 0240U; 32555; 36415; 36416; 36430; 36600; 71045; 71250; 74177; 80048; 80053; 80202; 81003; 81015; 82150; 82550; 82805; 82945; 83036; 83605; 83615; 83690; 83735; 83880; 84100; 84145; 84157; 84443; 84484; 85025; 86850; 86870; 86880; 86900; 86901; 86922; 87040; 87070; 87077; 87081; 87086; 87116; 87186; 87205; 87206; 87449; 87899; 88112; 88305; 89051; 93005; 94640; 94664; 94760; 94762; 96374; 96375; C9113; J0692; J0696; J1940; J2250; J2270; J2405; J3010; J3370; J3490; J7050; P9016